=== PATIENT | female | born 1960 | race Caucasian/White ===

== ENCOUNTER 2025-02-06 11:50 | Emergency (ER) | payer BC ==
[~2025-02-06] VITALS: Ht 152.4 cm; Wt 64.9 kg
[2025-02-06] MEDS ORDERED: LORAZEPAM INJ 2 MG/ML VIAL ONE (12:16)
[2025-02-06] MEDS ORDERED: MECLIZINE HCL 25 MG TABLET ONE (12:16)
[2025-02-06 12:25] LABS: BASOPHILS % (AUTO) 0.5 % (0.0-2.0); EOSINOPHILS # (AUTO) 0.2 K/uL (0.0-0.7); EOSINOPHILS % (AUTO) 1.8 % (0.0-6.0); HEMATOCRIT 36 % (33-45); HEMOGLOBIN 12.2 g/dL (11.5-14.8); LYMPHOCYTES # (AUTO) 2.4 K/uL (0.8-4.8); LYMPHOCYTES % (AUTO) 28.5 % (20.0-44.0); MEAN CORPUSCULAR HEMOGLOBIN 30 PG (26.0-33.0); MEAN CORPUSCULAR HGB CONC 34 g/dl (31.0-36.0); MEAN CORPUSCULAR VOLUME 88 fL (82-100); MONOCYTES # (AUTO) 0.6 K/uL (0.1-1.30); MONOCYTES % (AUTO) 7.2 % (2.0-12.0); NEUTROPHILS # (AUTO) 5.3 K/uL (1.8-8.9); PLATELET COUNT (AUTO) 276 K/uL (150-450); RED BLOOD CELL COUNT(AUTO) 4.04 MIL/uL (4.0-5.2); WHITE BLOOD COUNT (AUTO) 8.5 K/uL (4.3-11.0)
[2025-02-06] MEDS: IV NS 0.9% 1,000 ML BAG IV ONE (12:30)
[2025-02-06] MEDS: MECLIZINE HCL 12.5 MG TABLET PO ONE (12:31)
[2025-02-06] MEDS: LORAZEPAM INJ 2 MG/ML VIAL IV ONE (12:31)
[2025-02-06 12:35] LABS: CALCIUM, SERUM 10.3 mg/dL (8.5-10.1); CREATININE 1.2 mg/dL (0.6-1.3); POTASSIUM 4.4 mmol/L (3.5-5.1)
[2025-02-06] MEDS ORDERED: MECL-159 PO (13:52)
[2025-02-06 14:37] VITALS: BP 130/77; TEMP 98.5; O2SAT 94
== END 2025-02-06 14:55 | disposition home or self-care (01) ==
LOC: ER 12:02
DX: H81.399 Other peripheral vertigo, unspecified ear (principal); Z60.2 Problems related to living alone
CPT/HCPCS: 99285; 96374; 70450; 96361; 93005; 85025; 80048; 36415; J8597; J2060; J7030